=== PATIENT | female | born 1995 | race Hispanic/Latino ===

== ENCOUNTER 2021-07-13 20:42 | Emergency (ER) | payer BC ==
[2021-07-13 20:47] VITALS: BP 112/75
--- NOTE | 2021-07-13 22:30 | Emergency Department Report ---
ED Female HPI - General Chief complaint: Vaginal Bleeding Stated complaint: ABD PAIN Time Seen by Provider: 07/13/21 22:28 Source: patient Mode of arrival: Ambulatory Limitations: No Limitations - History of Present Illness Initial comments: 26-year-old female who just relocated from [facility] about 1 week ago status post 5-week about 1 week ago and IUD placement immediately following. She reports having some heavy bleeding following and cramping following IUD placement but it has eased up since worsening. The bleeding has been present since the IUD placement in the form of some spotting which she did expect as well as cramping but when it intensified about 2 hours ago she decided come to emergency department to get checked to be sure all is well MD Complaint: vaginal bleeding, pelvic pain -: Gradual, hour(s) (2-3) Location: suprapubic Radiation: L flank, R flank Severity: moderate Quality: cramping Consistency: constant Improves with: none Are you Now?: No Associated Symptoms: vaginal bleeding, abdominal pain. denies: loss of appetite, hematuria - Related Data Sexually active: No (No activity since the ) Allergies Allergy/AdvReac Type Severity Reaction Status Date / Time No Known Allergies Allergy Verified 07/13/21 20:47 ED Review of Systems ROS: Stated complaint: ABD PAIN Other details as noted in HPI Comment: All other systems reviewed and negative ED Past Medical Hx - Past Medical History Previous Medical History?: No - Surgical History Hx Appendectomy: Yes ED Physical Exam - General Limitations: No Limitations General appearance: alert, in no apparent distress - Head Head exam: Present: atraumatic, normocephalic - Eye Eye exam: Present: normal appearance - ENT ENT exam: Present: mucous membranes moist - Neck Neck exam: Present: normal inspection - Respiratory Respiratory exam: Present: normal lung sounds bilaterally. Absent: respiratory distress - Cardiovascular Cardiovascular Exam: Present: regular rate, normal rhythm. Absent: systolic murmur, diastolic murmur, rubs, gallop - GI/Abdominal GI/Abdominal exam: Present: soft, tenderness (Tenderness to suprapubic region with palpation. No CVA tenderness noted. No masses are appreciated no discolored), normal bowel sounds - Extremities Exam Extremities exam: Present: normal inspection - Back Exam Back exam: Present: normal inspection - Neurological Exam Neurological exam: Present: alert, oriented X3 - Psychiatric Psychiatric exam: Present: normal affect, normal mood - Skin Skin exam: Present: warm, dry, intact, normal color. Absent: rash ED Course Vital Signs 07/13/21 20:43 Temperature 98 F Pulse Rate 87 Respiratory 17 Rate Blood Pressure 112/75 [Right] ED Medical Decision Making - Lab Data Result diagrams: 07/13/21 23:12 07/13/21 23:12 - Radiology Data Radiology results: report reviewed [facility] [address] [place] [address] Ultrasound Report Signed Patient: JERSEY VILLARREAL MR#: [id number] : 1995 A cct:[id number] Age/Sex: 26 / F ADM Date: 07/13/21 Loc: ED Attending Dr: Ordering Physician: REGLA SANCHEZ Date of Service: 07/13/21 Procedure(s): US OB <= 14 weeks fetus Accession Number(s): [id number] cc: REGLA SANCHEZ ULTRASOUND OBSTETRIC REASON FOR EXAM: Vaginal bleeding TECHNIQUE: Transabdominal and transvaginal ultrasound was performed to evaluate a first trimester . COMPARISON: None available. FINDINGS: Uterus measures 9.2 x 3.9 x 4.5 cm. Endometrial stripe measures 2.4 cm. No IUP is identified. Left ovary is not visualized. Right ovary measures 4.1 x 2.5 x 2.1 cm. No significant cystic or solid mass in either adnexa. Normal right ovarian Doppler flow. No significant free fluid. IMPRESSION: of unknown location. No IUP identified at this time. Findings could reflect an early intrauterine , occult ectopic , or recent spontaneous . In a hemodynamically stable patient, recommend follow-up with pelvic ultrasound in 7- 10 days. Signer Name: Cristobal Baez MD Signed: 07/14/2021 2:15 AM Workstation Name: [id number] Transcribed By: LAUREN Dictated By: CRISTOBAL BAEZ MD Electronically Authenticated By: CRISTOBAL BAEZ MD Signed Date/Time: 07/14/21214 DD/ 2 TD/TT: - Medical Decision Making This patient with recent presents with vaginal bleeding after having placed her IUD, differential diagnosis includes ectopic , IUP, month threatened/inevitable , along with a completed . Patient is HDS and without a history of coagulopathy or infectious symptoms. The ultrasound does not reveal an IUP however with an elevated hCG quant is recommended to repeat the ultrasound although it is very likely that this is residual from her which was just a week ago Based on exam history and ED work-up patient presentation is not consistent with an ectopic , life-threatening coagulopathy, trauma, serious bacterial infection, central process or other emergency Critical care attestation.: If time is entered above; I have spent that time in minutes in the direct care of this critically ill patient, excluding procedure time. ED Disposition Clinical Impression: Vaginal bleeding, Pelvic pain, IUD complication Disposition: HOME / SELF CARE / HOMELESS Is pt being admited?: No Does the pt Need Aspirin: No Condition: Stable Instructions: Pelvic Pain, Female, Dysfunctional Uterine Bleeding Additional Instructions: To be sure to follow-up with [facility] for further evaluation of the IUD ultrasound does not mention visualizing any IUD at this present time so it is worth having it reevaluated with an [facility] but however based on the findings no urgent or emergent medical condition is currently present.. No was seen on ultrasound as well quant is slightly elevated at 1700 but this may be secondary to your recent about a week ago Referrals: [facility] [Provider Group] - 3-5 Days
[2021-07-14 00:04] LABS: Basophils % (Auto) 0.3 % (0.0-1.8); Eosinophils # (Auto) 0.1 K/mm3 (0.0-0.4); Hematocrit 40.4 % (30.3-42.9); Hemoglobin 13.7 gm/dl (10.1-14.3); Lymphocytes # (Auto) 1.7 K/mm3 (1.2-5.4); Lymphocytes % (Auto) 17.9 % (13.4-35.0); Mean Corpuscular HGB Conc 34 % (30-34); Mean Corpuscular Volume 97 fl (79-97); Monocytes # (Auto) 0.6 K/mm3 (0.0-0.8); Platelet Count 303 K/mm3 (140-440); Red Blood Count 4.17 M/mm3 (3.65-5.03); Red Cell Distribution Width 11.7 % (13.2-15.2)
[2021-07-14 00:08] LABS: Blood Urea Nitrogen 13 mg/dL (7-17); Calcium 9.1 mg/dL (8.4-10.2); Hemolysis Index 3
[2021-07-14 00:12] LABS: BUN/Creatinine Ratio 19
--- NOTE | 2021-07-14 02:19 | Ultrasound Report ---
ULTRASOUND OBSTETRIC REASON FOR EXAM: Vaginal bleeding TECHNIQUE: Transabdominal and transvaginal ultrasound was performed to evaluate a first trimester pre gnancy. COMPARISON: None available. FINDINGS: Uterus measures 9.2 x 3.9 x 4.5 cm. Endometrial stripe measures 2.4 cm. No IUP is identifie d. Left ovary is not visualized. Right ovary measures 4.1 x 2.5 x 2.1 cm. No significant cystic or so lid mass in either adnexa. Normal right ovarian Doppler flow. No significant free fluid. IMPRESSION: of unknown location. No IUP identified at this time. Findings could reflect an early intrau terine , occult ectopic , or recent spontaneous . In a hemodynamically stab le patient, recommend follow-up with pelvic ultrasound in 7-10 days. Signer Name: Johnny Baez MD Signed: 07/14/2021 2:15 AM Workstation Name: [id number]
== END 2021-07-14 05:00 | disposition home or self-care (01) ==
LOC: ED 20:42
DX: T83.83XA Hemorrhage due to genitourinary prosthetic devices, implants and grafts, initial encounter (principal); Z90.49 Acquired absence of other specified parts of digestive tract; Z79.899 Other long term (current) drug therapy; Y83.8 Other surgical procedures as the cause of abnormal reaction of the patient, or of later complication, without mention of misadventure at the time of the procedure; Y92.89 Other specified places as the place of occurrence of the external cause
CPT/HCPCS: 36415; 76801; 80048; 84702; 85025; 99283